=== PATIENT | female | born 1955 | race Two or more races ===

== ENCOUNTER → 2021-08-25 | Outpatient (CLI) | payer MEDICARE ==
[2021-08-25 09:21] LABS: Urine Bacteria NONE SEEN /hpf (None Seen); Urine Blood Negative /uL (Negative); Urine Mucus FEW (None Seen); Urine Specific Gravity 1.014 (1.001-1.035); Urine WBC 1 /hpf (0 - 5)
[2021-08-25 09:55] LABS: Basophils # (auto) 0 10 ^3/uL (0-0.2); Basophils % (auto) 0.4 % (0.0-2.0); Eosinophils # (auto) 0.1 10 ^3/uL (0-0.8); Eosinophils % (auto) 1.5 % (0.0-7.0); Hematocrit 40.6 % (36.0-46.0); Hemoglobin 13.5 g/dL (12.2-16.2); Lymphocytes # (auto) 1.7 10 ^3/uL (0.4-5.4); Lymphocytes % (auto) 28.3 % (10.0-50.0); Mean Corpuscular Hemoglobin 29.5 pg (28.0-32.0); Mean Corpuscular Hgb Conc. 33.4 g/dL (32.0-36.0); Mean Corpuscular Volume 88.4 fL (80.0-100.0); Monocytes # (auto) 0.5 10 ^3/uL (0-1.3); Monocytes % (auto) 7.5 % (0.0-12.0); Neutrophils # (auto) 3.8 10 ^3/uL (1.6-8.6); Neutrophils % (auto) 62.3 % (37.0-80.0); Nucleated Red Blood Cells % 0.1 %; Red Blood Cells 4.59 10^6/uL (4.0-5.20); Red Cell Distribution Width 13.7 % (11.8-14.3); White Blood Cell 6.1 10^3/uL (4.4-10.8)
[2021-08-25 10:04] LABS: Potassium 4.2 mmol/L (3.5-5.1)
[2021-08-25 10:35] LABS: Albumin 3.7 g/dL (3.4-5.0); BUN/Creatinine Ratio 24.6; Bilirubin, Total 0.6 mg/dL (0.2-1.0); Calcium 9.3 mg/dL (8.5-10.1); Total Protein 7.7 g/dL (6.4-8.2)
== END | disposition home or self-care (01) ==
LOC: LAB 08:44
PROVIDERS: ATTEND Student in an Organized Health Care Education/Training Program
DX: I10 Essential (primary) hypertension (principal); R73.9 Hyperglycemia, unspecified; Z12.11 Encounter for screening for malignant neoplasm of colon
CPT/HCPCS: 36415; 80053; 80061; 81001; 83036; 84443; 85025

== ENCOUNTER → 2022-02-25 | Outpatient (CLI) | payer OTHER | END | disposition home or self-care (01) | LOC: LAB 09:30 | PROVIDERS: ATTEND Student in an Organized Health Care Education/Training Program | DX: Z12.11 Encounter for screening for malignant neoplasm of colon (principal); R79.89 Other specified abnormal findings of blood chemistry | CPT/HCPCS: 36415; 84439; 84443 ==

== ENCOUNTER → 2022-11-08 | Outpatient (CLI) | payer OTHER ==
[2022-11-08 10:32] LABS: Basophils # (auto) 0 10 ^3/uL (0-0.2); Basophils % (auto) 0.3 % (0.0-2.0); Eosinophils # (auto) 0 10 ^3/uL (0-0.8); Eosinophils % (auto) 0.7 % (0.0-7.0); Hematocrit 40.6 % (36.0-46.0); Hemoglobin 13.6 g/dL (12.2-16.2); Lymphocytes # (auto) 1.8 10 ^3/uL (0.4-5.4); Lymphocytes % (auto) 27.1 % (10.0-50.0); Mean Corpuscular Hemoglobin 29.2 pg (28.0-32.0); Mean Corpuscular Hgb Conc. 33.4 g/dL (32.0-36.0); Mean Corpuscular Volume 87.3 fL (80.0-100.0); Monocytes # (auto) 0.4 10 ^3/uL (0-1.3); Monocytes % (auto) 6.8 % (0.0-12.0); Neutrophils # (auto) 4.2 10 ^3/uL (1.6-8.6); Neutrophils % (auto) 65.1 % (37.0-80.0); Red Blood Cells 4.65 10^6/uL (4.0-5.20); Red Cell Distribution Width 13.9 % (11.8-14.3); White Blood Cell 6.5 10^3/uL (4.4-10.8)
[2022-11-08 10:38] LABS: Urine Bacteria NONE SEEN /hpf (None Seen); Urine Blood Negative /uL (Negative); Urine Specific Gravity 1.023 (1.001-1.035); Urine WBC 5 /hpf (0 - 5)
[2022-11-08 13:33] LABS: Potassium 4.1 mmol/L (3.5-5.1)
[2022-11-08 13:43] LABS: Albumin 3.4 g/dL (3.4-5.0); BUN/Creatinine Ratio 30.6 (10.0-20.0); Bilirubin, Total 0.4 mg/dL (0.2-1.0); Total Protein 7.2 g/dL (6.4-8.2)
== END | disposition home or self-care (01) ==
LOC: LAB 10:03
PROVIDERS: ATTEND Student in an Organized Health Care Education/Training Program
DX: Z12.11 Encounter for screening for malignant neoplasm of colon (principal); E55.9 Vitamin D deficiency, unspecified; R73.9 Hyperglycemia, unspecified; R03.0 Elevated blood-pressure reading, without diagnosis of hypertension
CPT/HCPCS: 36415; 80053; 80061; 81001; 83036; 84439; 84443; 85025

== ENCOUNTER → 2023-05-24 | Outpatient (CLI) | payer OTHER ==
[2023-05-24 08:32] LABS: Urine Blood Negative /uL (Negative); Urine Clarity Clear (Clear); Urine Color Yellow (Yellow); Urine Protein, UAD Negative (Negative); Urine Specific Gravity 1.021 (1.001-1.035); Urine Urobilinogen Normal (Negative); Urine pH 5.5 (5.0-8.0)
[2023-05-24 09:23] LABS: Alanine Aminotransferase 19 U/L (7-40); Alkaline Phosphatase 91 U/L (46-116); Anion Gap 6 (5-15); Aspartate Aminotransferase 23 U/L (13-40); BUN/Creatinine Ratio 28.1 (10.0-20.0); Blood Urea Nitrogen 16 mg/dL (9-23); Calcium 9.4 mg/dL (8.5-10.1); Carbon Dioxide 29 mmol/L (20-30); Chloride 105 mmol/L (98-107); Glucose 97 mg/dL (74-106); LDL Cholesterol 197 mg/dL (< 100); Potassium 4.2 mmol/L (3.5-5.1); Sodium 140 mmol/L (136-145); Triglycerides 121 mg/dL (< 150)
[2023-05-24 09:24] LABS: Albumin 4.4 g/dL (3.2-4.8); Bilirubin, Total 0.6 mg/dL (0.2-1.0); Cholesterol 306 mg/dL (< 200); HDL Cholesterol 72 mg/dL (40-59); Total Protein 7.3 g/dL (5.7-8.2)
== END | disposition home or self-care (01) ==
LOC: LAB 08:11
DX: Z12.11 Encounter for screening for malignant neoplasm of colon (principal); R79.89 Other specified abnormal findings of blood chemistry; E78.5 Hyperlipidemia, unspecified
CPT/HCPCS: 36415; 80053; 80061; 81003; 83036; 84439; 84443

== ENCOUNTER → 2023-12-01 | Outpatient (CLI) | payer OTHER | END | disposition home or self-care (01) | LOC: LAB 10:27 | PROVIDERS: ATTEND Student in an Organized Health Care Education/Training Program | DX: Z12.11 Encounter for screening for malignant neoplasm of colon (principal); E78.5 Hyperlipidemia, unspecified; R73.9 Hyperglycemia, unspecified; R94.01 Abnormal electroencephalogram [EEG]; E55.9 Vitamin D deficiency, unspecified | CPT/HCPCS: 82274 ==

== ENCOUNTER 2025-01-21 10:10 | Emergency (ER) | payer OTHER ==
[~2025-01-21] VITALS: Ht 152.4 cm; Wt 50.0 kg
--- NOTE | 2025-01-21 10:33 | ED.PDOC ---
Eye-HPI Chief Complaint: Sore Throat Time Seen by MD: 10:25 Reviewed Notes: Nurses Notes, Medications, Allergies Allergies: Coded Allergies: NO KNOWN ALLERGIES (Unverified , 01/21/25) Information Source: Patient Mode of Arrival: Ambulatory Timing: Days Duration: Since onset Prehospital treatment: Pain Meds (tylenol) Lids: Normal Conjunctiva: Normal Cornea: Normal Pupils: Normal EOM: Normal Fundus: Normal Slit lamp exam: Normal Anterior chamber: Normal Mouth Location: Pharynx Onset: Spontaneous Past Medical History PAST MEDICAL HISTORY: High Lipids Surgical History: Denies all surgeries PERFUSIONIST History: No Pertinent PERFUSIONIST History Family History Family History: Reviewed,noncontributory to illness, No family hx of Cancer, No family hx of DM, No family hx of Heart stanley, No family hx of HTN, No family hx ofKidney stanley, No family hx of Liver stanley, No family hx of Lung stanley, No family hx of Stroke Social History Smoker: Non-Smoker Alcohol: Denies ETOH Use Drugs: Denies Drug Use Lives In: Home All Other Systems: Reviewed and Negative (as per HPI) Physical Exam General Appearance: Normal HEENT: Normal ENT Inspection, Pharynx Normal, Other (MMM, uvula midline, no airway obstruction, no tonsillar exudate) Neck: Full Range of Motion, Non-Tender, Normal, Normal Inspection Respiratory: Chest Non-Tender, Lungs Clear, No Accessory Muscle Use, No Respiratory Distress, Normal Breath Sounds Cardiovascular: No Edema, No JVD, No Murmur, No Gallop, Normal Peripheral Pulses, Regular Rate/Rhythm Breast Exam: Deferred Gastrointestinal: No Organomegaly, Non Tender, No Pulsatile Mass, Normal Bowel Sounds, Soft Genitalia: Deferred Pelvic: Deferred Rectal: Deferred Extremities: No calf tenderness, Normal capillary refill, Normal inspection, Normal range of motion, Non-tender, No pedal edema Musculoskeletal : Apperance: Normal Neurologic: Alert, photolithographer II-XII nml as Tested, No Motor Deficits, Normal Affect, Normal Mood, No Sensory Deficits Cerebellar Function: Normal Reflexes: Normal Skin: Dry, Normal Color, Warm Lymphatic: No Adenopathy Was a procedure done? Was a procedure done?: No X-Ray, Labs, Meds, VS Vital Signs Date Time Temp Pulse Resp B/P (MAP) Pulse Ox O2 Delivery O2 Flow Rate FiO2 01/21/25 10:27 98.7 92 16 119/68 (85) 95 98.7 X-Ray, Labs, Meds, VS Comment Patient arrives alert and oriented, ABC's intact, afebrile, vital signs stable, saturating well in room air Peripheral IV insertion+ labs were ordered. CBC was ordered to exclude anemia, blood loss, or infection. BMP was ordered to exclude electrolyte abnormalities, renal failure, dehydration, hyperglycemia CMP was ordered to exclude electrolyte abnormalities, renal failure, dehydration, hyperglycemia and/or liver enzyme abnormalities. PT and INR were ordered to rule out coagulopathy. Troponin and BNP were ordered to rule out myocardial infarction, or congestive heart failure. Urinalysis was ordered to rule out UTI or hematuria. Diagnostic imaging ordered by me and results interpreted by radiology : Labs in the ED showed (pertinent+ and then pertinent-) Patient was given:_. Tolerated medications with no adverse reaction. Additional MDM Review of External, Non-ED records: External records reviewed. Discussion with independent historian (EMS, family) history obtained from the patient/parents (if applicable) at bedside Chronic conditions affecting care: None Social determinants of health affecting care: None Consideration of admission (observation or admission): I considered escalation of care to admission for this patient, however given the reassuring workup, the patient is safe for outpatient management. Discussion with the Radiology: No Tests considered but not performed: Prescription medication considered but not given: 12 lead EKG interpretation: Time of 1ST Reevaluation: 10:55 Reevaluation 1ST: Improved Patient Education/Counseling: Diagnosis, Treatment Family Education/Counseling: No Family Present SEPSIS Sepsis Screen Physician Orders Rapid Strep Screen - Throat (01/21/25 10:25) Vital Signs Date Time Temp Pulse Resp B/P (MAP) Pulse Ox O2 Delivery O2 Flow Rate FiO2 01/21/25 10:27 98.7 92 16 119/68 (85) 95 98.7 Critical Care Note Critical Care Time?: No Stability Stability form required: No Heart Score Heart Score: Heart Score Response (Comments) Value History N/A 0 EKG N/A 0 Age N/A 0 Risk Factors N/A 0 Troponin N/A 0 Total 0 I personally scribed for JESSY HAYWARD NP ([email or web address]) on 01/21/25 at 10:33. Electronically submitted by Lynn Zafar ([email or web address]). I personally scribed for JESSY HAYWARD NP ([email or web address]) on 01/21/25 at 10:35. Electronically submitted by Lynn Zafar ([email or web address]). JESSY HAYWARD NP Jan 21, 2025 10:33
--- NOTE | 2025-01-21 10:39 | ED.PDOC ---
Eye-HPI HPI Comments 69 year old female with a past medical history of hyperlipidemia presents with a chief complaint of sore throat onset 1 week. Patient states she has been experiencing sore throat for the past week, has taken Tylenol as well as NyQuil with no improvement of symptoms. No other symptoms or modifying factors present at this time. Denies fevers chills night sweats unintentional weight loss Denies persistent chest pain, shortness of breath, leg swelling Denies history of asthma nor any breathing conditions Denies history of pneumonia Denies recent international travel Chief Complaint: Sore Throat Time Seen by MD: 10:20 Reviewed Notes: Nurses Notes, Medications, Allergies Allergies: Coded Allergies: NO KNOWN ALLERGIES (Unverified , 01/21/25) Home Meds Active Scripts Triamcinolone Acetonide (Triamcinolone In Orabase) 0.1 % Pst, 1 APPLIC MT BID for 5 Days, #0.5 GRAMS 0 Refills Prov:JESSY HAYWARD NP 01/21/25 Ibuprofen Micronized (Ibuprofen) 600 Mg Tab, 600 MG PO TIDPRN PRN for 5 Days, #15 TAB 0 Refills Prov:JESSY HAYWARD NP 01/21/25 Information Source: Patient Mode of Arrival: Ambulatory Timing: Weeks Duration: Since onset Prehospital treatment: Pain Meds (tylenol) Lids: Normal Cornea: Normal Pupils: Normal EOM: Normal Fundus: Normal Slit lamp exam: Normal Anterior chamber: Normal Mouth Location: Pharynx Onset: Spontaneous Throat Exposed to: None Past Medical History PAST MEDICAL HISTORY: High Lipids Surgical History: Denies all surgeries [employer] CONSULTANT History: No Pertinent [employer] CONSULTANT History Family History Family History: Reviewed,noncontributory to illness, No family hx of Cancer, No family hx of DM, No family hx of Heart stanley, No family hx of HTN, No family hx ofKidney stanley, No family hx of Liver stanley, No family hx of Lung stanley, No family hx of Stroke Social History Smoker: Non-Smoker Alcohol: Denies ETOH Use Drugs: Denies Drug Use Lives In: Home All Other Systems: Reviewed and Negative (as per HPI) Physical Exam General Appearance: No Apparent Distress, Normal HEENT: Normal ENT Inspection, TMs Normal, Other (MMM, uvula midline, no airway obstruction, no tonsillar exudate ) Neck: Full Range of Motion, Non-Tender, Normal, Normal Inspection Respiratory: Chest Non-Tender, Lungs Clear, No Accessory Muscle Use, No Respiratory Distress, Normal Breath Sounds Cardiovascular: No Murmur, No Gallop, Regular Rate/Rhythm Breast Exam: Deferred Gastrointestinal: No Organomegaly, Non Tender, No Pulsatile Mass, Normal Bowel Sounds, Soft Genitalia: Deferred Pelvic: Deferred Rectal: Deferred Extremities: No calf tenderness, Normal capillary refill, Normal inspection, Normal range of motion, Non-tender, No pedal edema Musculoskeletal : Apperance: Normal Neurologic: Alert, managing director atlas II-XII nml as Tested, No Motor Deficits, Normal Affect, Normal Mood, No Sensory Deficits Cerebellar Function: Normal Reflexes: Normal Skin: Dry, Normal Color, Warm Lymphatic: No Adenopathy Was a procedure done? Was a procedure done?: No EENT DIFF Eye: Other Sore Throat: Pharyngitis, Streptococcal, Viral Pharyngitis, URI X-Ray, Labs, Meds, VS Vital Signs Date Time Temp Pulse Resp B/P (MAP) Pulse Ox O2 Delivery O2 Flow Rate FiO2 01/21/25 11:29 98.6 80 18 123/61 (81) 96 98.6 01/21/25 11:29 80 18 96 Room Air 01/21/25 10:27 98.7 92 16 119/68 (85) 95 98.7 Lab Test 01/21/25 10:15 Range/Units Group A Streptococcus Rapid Negative X-Ray, Labs, Meds, VS Comment 69 year old female with a past medical history of hyperlipidemia with a chief complaint of sore throat onset 1 week. Patient arrives alert and oriented, ABC's intact, afebrile, vital signs stable, saturating well in room air After review of systems and physical examination there are no no concerns or red flags for peritonsillar abscess, abscess formation, epiglottitis, retropharyngeal abscess formation or airway obstruction. No concerns for peritonsillar abscess as patient denies severe sore throat, muffled or hot potato voice, and difficulty handling secretions. No concerns for abscess formation as the soft palate is symmetrical and there is no displacement of the uvula and the uvula is also midline. No concerns for epiglottitis as patient denies severe sore throat, dysphagia, mu ffled voice, patient is not drooling nor is patient in tripod position. No signs of retropharyngeal abscess formation as patient has no fevers, stiff neck, drooling no stridor No signs of airway obstruction as patient denies sensation of foreign body vital signs stable on room air. Ordered rapid strep test and results were Negative Encouraged fluid intake Acetaminophen to reduce pain/fever NSAIDs to reduce pain/fever Nonpharmacological recommendations given Warm salt water gargles Throat lozenges Humidified air Patient is stable for discharge at this time. External notes reviewed. Test results and diagnostic imaging interpreted. All diagnostic findings, discharge care, education and instructions provided Follow-up with PCP in 2 to 3 days Patient verbalized understanding and agreed to treatment plan Vital signs stable, afebrile, no acute distress noted Patient ambulatory with strong steady gait Advised to return precautions for any new or worsening symptoms, return to ER immediately for re-evaluation Patient is aware that the purpose of this visit was for an acute medical emergency requiring emergent stabilization. Chronic conditions, including malignancies have not been ruled out. Patient is instructed to follow up with PCP as directed and discharge instructions for continued care and workup. If unable to arrange follow-up, patient is to return to the emergency department for reassessment. Patient (parent or legal guardian if applicable) was given verbal and written discharge instructions and acknowledges understanding. Additional MDM Review of External, Non-ED records: External records reviewed. Discussion with independent historian (EMS, family) history obtained from the patient/parents (if applicable) at bedside Chronic conditions affecting care: HLD Social determinants of health affecting care: None Consideration of admission (observation or admission): I considered escalation of care to admission for this patient, however given the reassuring workup, the patient is safe for outpatient management. Time of 1ST Reevaluation: 10:55 Reevaluation 1ST: Improved Patient Education/Counseling: Diagnosis, Treatment Family Education/Counseling: No Family Present SEPSIS Sepsis Screen Date sepsis recognized/suspect: Jan 21, 2025 Time Sepsis recognized/suspect: 1027 Recent Procedure: No On Antibiotic Therapy: No Respiratory Rate >20: No Heart Rate >90: No Temp<36 C (96.8 F) or >38.3 C: No SBP <90 or MAP <65 mmHG: No New Acute Mental Status Change: No Is the patient on CPAP, BIPAP,: No Vital Signs Date Time Temp Pulse Resp B/P (MAP) Pulse Ox O2 Delivery O2 Flow Rate FiO2 01/21/25 11:29 98.6 80 18 123/61 (81) 96 98.6 01/21/25 11:29 80 18 96 Room Air 01/21/25 10:27 98.7 92 16 119/68 (85) 95 98.7 Departure 1 Departure Time of Disposition: 10:55 Impression: Primary Impression: Pharyngitis Qualified Codes: J02.9 - Acute pharyngitis, unspecified Additional Impression: Canker sores oral Disposition: HOME / SELF CARE / HOMELESS Condition: Fair e-Prescriptions Triamcinolone Acetonide (Triamcinolone In Orabase) 0.1 % Pst 1 APPLIC MT BID for 5 Days, #0.5 GRAMS 0 Refills Prov: JESSY HAYWARD NP 01/21/25 Ibuprofen Micronized (Ibuprofen) 600 Mg Tab 600 MG PO TIDPRN PRN for 5 Days, #15 TAB 0 Refills Prov: JESSY HAYWARD NP 01/21/25 Critical Care Note Critical Care Time?: No Stability Stability form required: No Heart Score Heart Score: Heart Score Response (Comments) Value History N/A 0 EKG N/A 0 Age N/A 0 Risk Factors N/A 0 Troponin N/A 0 Total 0 I personally scribed for JESSY HAYWARD ORDER TAKER ([email or web address]) on 01/21/25 at 10:39. Electronically submitted by Lynn Zafar ([email or web address]). I personally scribed for JESSY HAYWARD NP ([email or web address]) on 01/21/25 at 10:40. Electronically submitted by Lynn Zafar ([email or web address]). JESSY HAYWARD ORDER TAKER Jan 21, 2025 10:39
[2025-01-21 11:07] LABS: Rapid Strep A Screen-Throat Negative
[2025-01-21] MEDS ORDERED: TRIA0.1P12 MT (11:19)
[2025-01-21] MEDS ORDERED: IBUP1TAB5 PO (11:19)
[2025-01-21 11:29] VITALS: BP 123/61; PULSE 80; RESP 18; TEMP 98.6; O2SAT 96
== END 2025-01-21 11:38 | disposition home or self-care (01) ==
LOC: ER 10:10
DX: J02.9 Acute pharyngitis, unspecified (principal); K12.0 Recurrent oral aphthae
CPT/HCPCS: 87070; 87880

== ENCOUNTER 2025-04-10 10:29 | Outpatient (CLI) | payer OTHER ==
[~2025-04-10 10:29] MED LIST: IBUP1TAB5 PO; TRIA0.1P12 MT
[2025-04-10 10:47] LABS: Hematocrit 43.9 % (36.0-46.0); Hemoglobin 15.1 g/dL (12.2-16.2); Mean Corpuscular Hemoglobin 30.0 pg (28.0-32.0); Mean Corpuscular Volume 87.1 fL (80.0-100.0); Nucleated Red Blood Cells % 0.0 %
[2025-04-10 10:50] LABS: Urine Protein, UAD Negative (Negative)
[2025-04-10 11:07] LABS: Alanine Aminotransferase 21 U/L (7-40); Albumin 4.5 g/dL (3.2-4.8); Alkaline Phosphatase 100 U/L (46-116); Anion Gap 9 (5-15); BUN/Creatinine Ratio 16.9 (10.0-20.0); Blood Urea Nitrogen 11 mg/dL (9-23); Calcium 9.5 mg/dL (8.7-10.4); Carbon Dioxide 28 mmol/L (20-31); Chloride 105 mmol/L (98-107); Glucose 90 mg/dL (74-106); Potassium 4.3 mmol/L (3.5-5.1); Sodium 142 mmol/L (136-145); Total Protein 7.8 g/dL (5.7-8.2); Triglycerides 97 mg/dL (< 150)
[2025-04-10 11:08] LABS: Bilirubin, Total 0.6 mg/dL (0.2-1.0)
[2025-04-10 11:30] LABS: Cholesterol 251 mg/dL (< 200); HDL Cholesterol 67 mg/dL (40-59)
== END 2025-04-10 17:00 | disposition home or self-care (01) ==
LOC: LAB 10:29
PROVIDERS: ATTEND Student in an Organized Health Care Education/Training Program
DX: E55.9 Vitamin D deficiency, unspecified (principal); R03.0 Elevated blood-pressure reading, without diagnosis of hypertension; R79.89 Other specified abnormal findings of blood chemistry
CPT/HCPCS: 36415; 80053; 80061; 81001; 82306; 83036; 84439; 84443; 85025